=== PATIENT | female | born 2000 | race Two or more races ===

== ENCOUNTER 2025-01-02 17:40 | Emergency (ER) | payer MEDICAID, SELFPAY ==
[2025-01-02 18:20] VITALS: BP 115/80; PULSE 89; RESP 18; TEMP 36.9; O2SAT 100; BMI 22.0
--- NOTE | 2025-01-02 18:52 | PD.EDDENTL ---
ED Dental RME/HPI General Chief complaint: Dental/Oral/Throat Stated complaint: C/O LIP PAIN/SWELLING X 2 WEEKS Time Seen by Provider: 01/02/25 18:24 Arrival date/time: 01/02/25 17:40 24-year-old female reports with complaints of lip pain and swelling x 2 weeks. Patient denies any lesions to the lips and any known allergies but she has noticed the swelling comes and goes over the past 2 weeks. She has not taken any medications for she denies any tongue swelling shortness of breath facial swelling or rash. Patient denies any changes in dietary or hygiene products. Patient does have a small bump to the left lower corner of the mouth which she states has been there for several years and is unrelated to this situation. Limitations: no limitations Related Data Allergies Allergy/AdvReac Type Severity Reaction Status Date / Time No Known Allergies Allergy Verified 01/02/25 17:44 Review of Systems Constitutional Constitutional: Denies fever(s) and Denies headache(s) ENT Ears, Nose, Mouth, and Throat: Denies headache(s), Reports lip swelling, Reports mouth lesions (small flesh colored papule left corner present for several years), Reports mouth pain, Denies throat swelling, Denies tongue swelling and Denies vertigo Cardiovascular Cardiovascular: Denies chest pain and Denies dyspnea Respiratory Respiratory: Denies cough and Denies dyspnea Integumentary/Breasts Skin/Breast: Denies sores, Denies skin swelling and Reports other (Dry cracked lips) Neurologic Neurologic: Denies headache(s) and Denies vertigo Allergic/Immunologic Allergic/Immunologic: Reports lip swelling, Denies throat swelling and Denies tongue swelling ED Exam General Limitations: Present no limitations General appearance: Present alert and in no apparent distress Head Head exam: Present atraumatic Eye Eye exam: Present normal appearance, PERRL and EOMI ENT ENT exam: Present normal oropharynx and mucous membranes moist; Absent normal exam (Bottom lip dry cracked peeling skin no bleeding small erythematous papule left corner of mouth no weeping crusting or draining) Neck Neck exam: Present normal inspection, full ROM and trachea midline Chest Chest inspection: Present normal inspection and symmetric chest wall rise Respiratory Respiratory exam: Present normal lung sounds bilaterally Cardiovascular Cardiovascular exam: Present regular rate, normal rhythm and normal heart sounds Neurological Exam Neurological exam: Present alert, oriented X3 and CN II-XII intact Psychiatric Psychiatric exam: Present normal affect and normal mood Skin Skin exam: Present warm, dry, intact and normal color Course Quality Measures none Vital Signs Vital signs: Vital Signs Temperature 98.5 F 01/02/25 18:20 Pulse Rate 89 01/02/25 18:20 Respiratory Rate 18 01/02/25 18:20 Blood Pressure 115/80 01/02/25 18:20 Pulse Oximetry (%) 100 01/02/25 18:20 Oxygen Delivery Method Room Air 01/02/25 18:20 Dental / Oral Patient data External records reviewed:: None Clinical information provided by:: patient Social determinants that could affect healthcare access:: none Patient has the following chronic illnesses:: none How is presenting disease/condition affected by chronic disease/condition?: no chronic disease Evaluation data The following diagnostics were reviewed and interpreted by me:: other (specify) (none) Lab and/or radiology exams considered but not ordered:: n/a Interpretation Summary: n/a Medications / Prescriptions Medications or Prescriptions considered but not ordered:: none Medication administrations:: none Consultations Consultation(s) initiated? (list below): No Diagnosis Most likely diagnosis given after review of the tests above:: Allergic reaction, chapped lips Admission Indicated Admission indicated?: not indicated Admission Request Was there a request for admission?: No Disposition Plan Disposition Plan: Discharge Discharge Attestation Discharge Attestation: The patient and all family members were given an opportunity to ask questions and understood the discharge instructions. Discharge instructions specifically effects, indications for sooner follow up or return to the emergency department, and the expected course of current diagnosis. Patient condition: Stable Discharge Plan Plan Patient Disposition: HOME (Self Care) Problem List Clinical Impression: Allergic reaction Patient/Caregiver Discharge Instructions Discharge Activity: activity as tolerated Additional Instructions: Your symptoms appear to be caused by an allergy you should use medication such as Benadryl to help with the allergic reaction and also following up with your primary care provider for referral to an wind technician to identify what you are allergic to. In the meantime be sure to monitor all foods and liquids that you intake write them down and do not try any new foods drinks or hygiene products until you can identify the allergy Print Language: Mongolian Stand Alone Forms: Nessa Award Info., Patient Portal Info Letter
== END 2025-01-02 19:56 | disposition home or self-care (01) ==
LOC: SERX 19:11
PROVIDERS: Emergency Provider Physician Assistant
DX: K13.79 Other lesions of oral mucosa (principal)
CPT/HCPCS: 99281

== ENCOUNTER 2025-02-05 08:03 | Emergency (ER) | payer MEDICAID, SELFPAY ==
[2025-02-05 08:04] VITALS: BMI 21.2
[2025-02-05 08:20] VITALS: BP 106/68; PULSE 80; RESP 18; TEMP 36.9; O2SAT 97
--- NOTE | 2025-02-05 09:01 | EDNOTE_ITS ---
<Statement entered by Irma Martinez MD - 02/05/25 13:36> As co-signing physician, I was present and available for consult prn. I concur with the plan and care as documented by the midlevel provider. ED Allergic Reaction RME/HPI General Chief complaint: Allergic Reaction Stated complaint: HIVES W/ ITCHING X2 DAYS Time Seen by Provider: 02/05/25 08:15 Arrival date/time: 02/05/25 08:03 RME / HPI RME / HPI narrative: 24-year-old female complaining of itchy rash which started 2 days ago on her hands and traveled up to her hairline and it is much itchy or at night. Denies any fever, nausea, vomiting, shortness of breath, new medications, new soaps, new detergents, new shampoos. Patient states she lives with 1 other person who still does not have the rash. Does not work. Related Data Previous Rx's ?Medication ?Instructions ?Recorded diphenhydramine HCl 25 mg capsule 25 - 50 mg (1 - 2 x 25 mg) PO Q6H 02/05/25 (Benadryl) PRN itchy 5 days #20 caps permethrin 5 % topical cream 1 applic topical Q14D 2 d oses #60 02/05/25 (Elimite) grams prednisone 20 mg tablet 40 mg (2 x 20 mg) PO QDAY #1 0 tabs 02/05/25 Allergies Allergy/AdvReac Type Severity Reaction Status Date / Time No Known Allergies Allergy Verified 02/05/25 08:05 ED Exam Narrative Physical exam: Constitutional: Patient alert and oriented. Well appearing. No acute distress. Not toxic appearing. Head: Normocephalic, atraumatic. Eyes: Periorbital regions bilaterally normal to inspection. Conjunctiva clear bilaterally. Sclera anicteric bilaterally. Pupils equal, round, reactive to light bilaterally. Extraocular movements intact bilaterally. Mouth/Throat: No angioedema of oropharynx or lips or tongue. No erythema or exudates. Mucous membranes moist. No stridor or muffled voice. No trismus. Handling secretions without difficulty. Airway widely patent. Neck: Supple. Trachea midline. No JVD. No nuchal rigidity. Normal range of motion. Respiratory: Normal effort. No accessory muscle use or respiratory distress. Abdomen: Soft. Non-distended. Non-tender throughout. No pulsatile mass. No guarding or rebound. Negative Vasquez?s sign. Negative McBurney?s point tenderness. Negative Rovsing?s. Back: No midline tenderness or step-offs. No CVA tenderness to palpation bilaterally. Upper Extremities: No gross deformities. Lower Extremities: No gross deformities. No edema or calf tenderness. Neuro: Speech normal. No gross motor or sensory deficits to upper or lower extremities bilaterally. GCS 15. CN II?XII grossly intact. Skin: Warm, dry, normal color. Positive erythematous papular rash to scantly noted to the hairline as well as arms and torso. Occasional thin soler deborah lines noted to the forearms. Rash spares the intraoral mucosa and palms bilaterally. Additionally 2 urticarial lesions noted on torso which are erythematous and blanching and geographic in nature. Psych: Normal affect. Cooperative. Normal insight. Course Quality Measures none Vital Signs Vital signs: Vital Signs Temperature 98.5 F 02/05/25 08:20 Pulse Rate 80 02/05/25 08:20 Respiratory Rate 18 02/05/25 08:20 Blood Pressure 106/68 02/05/25 08:20 Pulse Oximetry (%) 97 02/05/25 08:20 Oxygen Delivery Method Room Air 02/05/25 08:20 Allergic Reaction MDM Narrative MDM Narrative:: MDM Suspect: Papular erythematous rash with scant urticaria and soler deborah lines 2/2 bug bites and cannot exclude scabies involvement along with contact dermatitis No mucocutaneous lesions/vesicular lesions to suggest TENS/SJS No induration, fluctuance, severe warmth, fever, streaking to suggest suppurative bacterial infection No petechial or raised purpura to suggest vasculitis, hemolytic, thrombocytopenic rash No systemic signs ie respiratory distress etc. to suggest anaphylaxis No fever, extremity desquamation, mucocutaneous changes, conjunctivitis, adenopathy to suggest Kawasaki disease Plan for antihistamines, permethrin, steroids, supportive treatment advised, f/u with pmd and derm in 1-2 days Patient data External records reviewed:: [facility] previous records Clinical information provided by:: patient Social determinants that could affect healthcare access:: none Patient has the following chronic illnesses:: As noted How is presenting disease/condition affected by chronic disease/condition?: uneffected by Evaluation data The following diagnostics were reviewed and interpreted by me:: lab results Lab and/or radiology exams considered but not ordered:: Additional Labs and radiology considered, but not ordered as they were not clinically indicated at this time. Interpretation Summary: None Medications / Prescriptions Medications or Prescriptions considered but not ordered:: I ordered medications based on the patient?s clinical needs and assessment, as d ocumented in the chart. For medications not prescribed, they were not indicated for the patient's current condition, and I determined they were unnecessary at this time to avoid potential risks or complications. Medication administrations:: None Consultations Consultation(s) initiated? (list below): No Diagnosis Differential Diagnosis allergic reaction: contact dermatitis and urticaria Most likely diagnosis given after review of the tests above:: As noted Admission Indicated Admission indicated?: not indicated Admission Request Was there a request for admission?: No Disposition Plan Disposition Plan: Discharge Discharge Attestation Discharge Attestation: The patient and all family members were given an opportunity to ask questions and understood the discharge instructions. Discharge instructions specifically effects, indications for sooner follow up or return to the emergency department, and the expected course of current diagnosis. Patient condition: Stable Discharge Plan Plan Patient Disposition: HOME (Self Care) Patient condition on transfer: Stable Prescriptions/Referrals Prescriptions/Med Rec: New permethrin [Elimite] 5 % cream 1 applic topical Q14D Qty: 60 0RF Rx Instructions: apply second treatment 14 days after first treatment if live lice remain prednisone 20 mg tablet 40 mg PO QDAY Qty: 10 0RF diphenhydramine HCl [Benadryl] 25 mg capsule 25 - 50 mg PO Q6H PRN (Reason: itchy) 5 Days Qty: 20 0RF Rx Instructions: Will make you drowsy do not operate heavy machinery Problem List Clinical Impression: Rash Patient/Caregiver Discharge Instructions Education Materials: Bedbugs, ED Dermatitis Non Specific Rash, ED Scabies Additional Instructions: Follow up with your primary medical doctor within 48 hours. Return to the Emergency Room immediately for any new, worsening, continuing symptoms or any concerns at all. Return to the Emergency Room within 48 hours if you are unable to follow up with your primary medical doctor within 48 hours. Print Language: Irish Stand Alone Forms: [employer] Award Info., Patient Portal Info Letter PABLITO/CADENCE Supervising Physician PABLITO/CADENCE Supervising Physician: Dr. MARTINEZ
== END 2025-02-05 09:29 | disposition home or self-care (01) ==
LOC: SERX 09:35
PROVIDERS: Emergency Provider Emergency Medicine
DX: L50.9 Urticaria, unspecified (principal)
CPT/HCPCS: 99281